=== PATIENT | male | born 1985 | race Caucasian/White ===

== ENCOUNTER 2017-08-16 15:51 | Observation (INO) | payer OTHER ==
[~2017-08-16] VITALS: Ht 188 cm; Wt 145.5 kg
[2017-08-16] MEDS ORDERED: BUPIVACAINE/PF 0.5% ONE (16:55)
[2017-08-16] MEDS ORDERED: EPINEPHRINE 1 MG/ML, 1ML ONE (16:56)
[2017-08-16 17:00] VITALS: BP 118/78
[2017-08-16 17:08] LABS: HEMATOCRIT 46.7 % (39.2-51.8); HEMOGLOBIN 15.9 g/dL (13.7-18.0); WHITE BLOOD COUNT 7.7 x10^3/uL (3.4-10)
[2017-08-16] MEDS ORDERED: HYDROmorphone 1 MG/ML, 1ML ONE ×2 (17:12→18:58)
[2017-08-16] MEDS ORDERED: MIDAZOLAM 1 MG/ML, 2ML ONE (17:12)
[2017-08-16] MEDS ORDERED: FENTANYL PF 100 MCG/2ML ONE ×3 (17:14→18:58)
[2017-08-16] MEDS ORDERED: ONDANSETRON 2MG/ML, 2ML IVPush PRN ×2 (17:30→19:00)
[2017-08-16] MEDS ORDERED: OXYcodone 5 MG/5 ML ORAL.SOL UDC PO PRN (17:30)
[2017-08-16] MEDS ORDERED: KETOROLAC 30 MG/1 ML IV PRN (17:30)
[2017-08-16] MEDS ORDERED: HYDROcodone/APAP 7.5-325MG/15ML UDC PO PRN (17:30)
[2017-08-16] MEDS ORDERED: ACETAMINOPHEN 325 MG TABLET PO PRN (17:30)
[2017-08-16 17:32] LABS: BLOOD UREA NITROGEN 12 mg/dL (7-18)
[2017-08-16 17:34] LABS: ASPARTATE AMINO TRANSFERASE 19 U/L (15-37)
[2017-08-16] MEDS ORDERED: EPHEDRINE 50 MG/ML, 1ML ONE (17:36)
[2017-08-16] MEDS ORDERED: PROPOFOL 10 MG/ML, 20ML ONE (17:36)
[2017-08-16] MEDS ORDERED: ONDANSETRON 2MG/ML, 2ML ONE (17:36)
[2017-08-16] MEDS ORDERED: GLYCOPYRROLATE 0.2MG/1ML, 5ML ONE (17:36)
[2017-08-16] MEDS ORDERED: DEXAMETHASONE 4 MG/ML, 1ML ONE (17:36)
[2017-08-16] MEDS ORDERED: CEFOTETAN 2 GM ONE (17:36)
[2017-08-16] MEDS ORDERED: ROCURONIUM 10 MG/ML ONE (17:36)
[2017-08-16] MEDS ORDERED: NEOSTIGMINE 1 MG/ML, 10ML ONE (17:36)
[2017-08-16] MEDS ORDERED: SUCCINYLCHOLINE 20 MG/ML, 10ML ONE (17:36)
[2017-08-16] MEDS: PLEASE ENTER HEIGHT AND WEIGHT MC SCH (18:00)
[2017-08-16] MEDS: PLEASE ENTER ALLERGIES MC SCH ×2 (18:00)
[2017-08-16] MEDS ORDERED: ACETAMINOPHEN 650 MG/20.3 ML UDC ONE (18:58)
[2017-08-16] MEDS ORDERED: OXYcodone 5 MG/5 ML ORAL.SOL UDC ONE (18:58)
[2017-08-16] MEDS ORDERED: MORPHINE SULFATE 4 MG/ML, 1ML IVPush PRN (19:00)
[2017-08-16] MEDS: HYDROmorphone 1 MG/ML, 1ML IV PRN ×2 (19:00→19:22)
[2017-08-16] MEDS ORDERED: DIPHENHYDRAMINE 25 MG CAPSULE PO PRN (19:00)
[2017-08-16] MEDS: FENTANYL PF 100 MCG/2ML IV PRN ×2 (19:01→19:12)
[2017-08-16 20:00] VITALS: BP 141/85
[2017-08-16] MEDS: POTASSIUM CHLORIDE 20 MEQ in D5%-0.45% NACL 1,000 ML IV SCH (20:35)
[2017-08-16 23:59] VITALS: BP 145/87
[2017-08-17] MEDS: PLEASE ENTER ALLERGIES MC SCH ×2 (02:00)
[2017-08-17] MEDS: PLEASE ENTER HEIGHT AND WEIGHT MC SCH (02:00)
[2017-08-17 02:55] VITALS: BP 118/67
[2017-08-17 07:37] VITALS: BP 138/78
[2017-08-17] MEDS: POTASSIUM CHLORIDE 20 MEQ in D5%-0.45% NACL 1,000 ML IV SCH (08:12)
[2017-08-17] MEDS ORDERED: ENOXAPARIN 40 MG/0.4 ML SQ SCH (09:00)
[2017-08-17] MEDS ORDERED: HYDR-3241 PO (13:34)
[2017-08-17] MEDS ORDERED: ONDA4TAB7 PO (13:34)
[2017-08-17 14:04] VITALS: BP 134/82
== END 2017-08-17 14:28 | disposition home or self-care (01) ==
LOC: 4NOR 15:51 → INTOOBSV 15:51
PROVIDERS: ADMIT Surgery; ATTEND Surgery
DX: K81.2 Acute cholecystitis with chronic cholecystitis (principal); E66.9 Obesity, unspecified
CPT/HCPCS: 36415; 47562; 80053; 85025; 88304; 96372; 96374; G0378; J0171; J0330; J1100; J1170; J1650; J2250; J2405; J2704; J2710; J3010; J3480; J3490; S0074